=== PATIENT | male | born 1945 | race Caucasian/White ===

== ENCOUNTER 2022-05-10 08:48 | Day surgery (SDC) | payer MEDICARE, SELFPAY ==
--- NOTE | 2022-05-09 13:15 | HO.ANESPROP2 ---
Documented by User: Carole Maguire NP 05/09/22 13:15 HPI - Anesthesia Eval Consult details Narrative: 77yo M for Colonoscopy [facility] Past Medical History Medical History HTN (hypertension) Hypercholesteremia Hypothyroidism Urinary incontinence Surgical History Surgical History H/O prostatectomy Hx of cholecystectomy Social History Social History Patient Tobacco Use Status: Never used Tobacco Are you DNR?: No Advance Directives: No Advance Directives Information Provided: Yes Recently lost weight without trying: No Nutrition Risks: No Nutritional Risk Meds Allergies Allergy/AdvReac Type Severity Reaction Status Date / Time No Known Allergies Allergy Verified 05/09/22 13:05 Home Medications Medication Instructions Recorded Confirmed Last Taken Type Aspir-81 1 tab PO DAILY 05/09/22 05/09/22 05/02/22 History amlodipine 5 mg tablet 1 tab PO DAILY 05/09/22 05/09/22 05/08/22 History levothyroxine 50 mcg tablet 1 tab PO DAILY 05/09/22 05/09/22 05/09/22 History (Synthroid) rosuvastatin 40 mg tablet 1 tab PO DAILY 05/09/22 05/09/22 05/09/22 History Exam Exam Date and Time: May 09, 2022 1315 Assessment and Plan Assessment Anesthesia Assessment: Chart Reviewed Documented by User: Yoandy Valle MD 05/10/22 09:56 [facility] Past Medical History Medical History HTN (hypertension) Hypercholesteremia Hypothyroidism Urinary incontinence Family History Family history of problems with anesthesia: No Surgical History Surgical History H/O prostatectomy Hx of cholecystectomy History of Problems with Anesthesia: No Social History Social History Patient Tobacco Use Status: Never used Tobacco Are you DNR?: No Advance Directives: No Advance Directives Information Provided: Yes Recently lost weight without trying: No Nutrition Risks: No Nutritional Risk Meds Allergies Allergy/AdvReac Type Severity Reaction Status Date / Time No Known Allergies Allergy Verified 05/09/22 13:05 Home Medications Medication Instructions Recorded Confirmed Last Taken Type Aspir-81 1 tab PO DAILY 05/09/22 05/09/22 05/02/22 History amlodipine 5 mg tablet 1 tab PO DAILY 05/09/22 05/09/22 05/08/22 History levothyroxine 50 mcg tablet 1 tab PO DAILY 05/09/22 05/09/22 05/09/22 History (Synthroid) rosuvastatin 40 mg tablet 1 tab PO DAILY 05/09/22 05/09/22 05/09/22 History Exam Airway Mallampati Class: III TM Dist: >3cm Neck ROM: Full Partial: Upper Loose/Missing/Broken Teeth: Yes (many globally) Heart: [id number] Lungs: cta b/l Assessment and Plan Assessment Anesthesia Assessment: Anesthesia Plan Discussed Final Anesthetic Review Family History of Problems with Anesthesia: No History of Problems with Anesthesia: No NPO: Yes ASA Class: III Final Preanesthetic Review: No Changes in Pt Med Stat, Meds/Allgs Chart Reviewed, Consent Obtained/Reviewed and Anes Risks/Benef Reviewed Patient Risk: Intermediate Procedure Risk: Intermediate Assessment/Block/Sedation in SS: Assess/Block/Sedation-SS Anesthetic Plan Anesthetic Plan: MAC: and Agree w/ Assess. and Plan Disposition: Standard PACU
[2022-05-10 06:22] VITALS: BMI 34.4
[2022-05-10 09:16] VITALS: BP 163/90; PULSE 71; RESP 18; TEMP 36.6; O2SAT 97
[2022-05-10] MEDS: Lactated Ringers 1,000 ML 100 ML IVCONT (09:39)
--- NOTE | 2022-05-10 10:27 | MHC.SHP ---
Pre-Procedural Eval Section A Date of Service: 05/10/22 The patient is an INPATIENT: No Changes since office visit: No Cold of Flu in the past 2 weeks, No New Medical Problems, No Changes in Medication and No Patient answered all questions The History & Physical has been completed within 30 days and I have reviewed it.: Yes Section B Chief Complaint: screening, history of polyps Allergies: Allergies Allergy/AdvReac Type Severity Reaction Status Date / Time No Known Allergies Allergy Verified 05/09/22 13:05 Plan I have reviewed the history and physical and performed a pertinent physical examination on my patient. No changes have occurred unless specified.
[2022-05-10 11:15] VITALS: BP 104/61; PULSE 65; RESP 16; TEMP 36.2; O2SAT 96
--- NOTE | 2022-05-10 11:17 | PM.OP ---
Brief Operative Note Date of Service: 05/10/22 Pre-op diagnosis: screening Post-op diagnosis: same Surgeon: Benigno Madrid Anesthesia: MAC Was an Electrical Technician Instructor used for this Procedure?: No Estimated blood loss (mL): 5 Pathology: other Condition: stable Disposition: PACU
[2022-05-10 11:30] VITALS: BP 108/67; PULSE 67; RESP 16; O2SAT 94
[2022-05-10 11:45] VITALS: BP 118/69; PULSE 66; RESP 18; TEMP 36.5; O2SAT 95
--- NOTE | 2022-05-11 17:36 | OP_ITS ---
SURGEON: Benigno Madrid MD INDICATIONS: Colon cancer screening, prior history of adenomatous colon polyps. PREOPERATIVE DIAGNOSIS: POSTOPERATIVE DIAGNOSIS: PROCEDURE PERFORMED: Colonoscopy to the terminal ileum and biopsy with snare polypectomy. ESTIMATED BLOOD LOSS: COMPLICATIONS: ANESTHESIA: ASSISTANTS: SPECIMENS: MEDICATIONS: Monitored anesthesia care. PROCEDURE DESCRIPTION: Procedure was performed on 05/10/2022. History and physical performed. The risks and benefits of the procedure were explained to the patient. Informed consent was obtained. The patient was placed in left lateral decubitus position. A digital rectal exam was performed and was found to be normal. The Olympus Pediatric videocolonoscope was advanced in to the rectum and advanced to the cecum without difficulty. The cecum was identified by transillumination, palpation, and identification of the ileocecal valve. Examination was performed. The scope was removed. He tolerated the procedure well and was taken to recovery area in stable condition. FINDINGS: The terminal ileum was examined and appeared normal. The visualized colonic mucosa was within normal limits, without evidence of masses or ulcers. Two polyps were identified and removed, the first was located in the right colon measuring less than 5 mm. This was removed with biopsy forceps. The second was located in the rectum, measuring approximately 8-10 mm. This was removed with snare and recovered via suction. No other polyps were identified. There was moderate sigmoid diverticulosis. There was undigested food material in the sigmoid and rectum, which limited the sensitivity of the examination for detection of small polyps. The retained stool could not be removed completely as it clogged the scope. Retroflexed examination showed internal hemorrhoids. They were moderate in size. IMPRESSION: Colon polyps. RECOMMENDATIONS: Follow up on the biopsy results. MD CAROLINE Velasquez/JESSICA / [id number] BLAN[place]
== END 2022-05-10 11:57 | disposition home or self-care (01) ==
PROVIDERS: PCP Internal Medicine; Visit Provider Internal Medicine Gastroenterology
PROC: 0DJD8ZZ Inspection of Lower Intestinal Tract, Via Natural or Artificial Opening Endoscopic (ICD-10-PCS; CPT 45378; principal; 2022-05-10 10:20)
DX: Z12.11 Encounter for screening for malignant neoplasm of colon (principal); Z86.010 Personal history of colon polyps; D12.2 Benign neoplasm of ascending colon; D12.8 Benign neoplasm of rectum; K57.30 Diverticulosis of large intestine without perforation or abscess without bleeding; K64.8 Other hemorrhoids; I10 Essential (primary) hypertension; E78.00 Pure hypercholesterolemia, unspecified; E03.9 Hypothyroidism, unspecified; Z90.49 Acquired absence of other specified parts of digestive tract; Z79.82 Long term (current) use of aspirin; Z79.899 Other long term (current) drug therapy; Z90.79 Acquired absence of other genital organ(s)
CPT/HCPCS: 45385; 45380; 88305

== ENCOUNTER 2023-11-20 08:18 | Outpatient (REF) | payer MEDICARE, SELFPAY ==
[2023-11-20 15:30] LABS: Alanine Aminotransferase 49 U/L (0-40); Albumin Level 3.9 g/dL (3.5-5.0); Alkaline Phosphatase 77 U/L (39-117); Aspartate Amino Transferase 39 U/L (5-37); Bilirubin Direct 0.2 mg/dL (0.0-0.5); Bilirubin Total 0.6 mg/dL (0.0-1.0); Cholesterol 159 mg/dL (<200); HDL Cholesterol 33 mg/dL (>40); LDL Cholesterol Calculated 103 mg/dL (<100); Total Protein 6.9 g/dL (6.5-8.0); Triglycerides 116 mg/dL (<150)
== END 2023-11-20 08:19 | disposition home or self-care (01) ==
LOC: HO.CHCLDS 08:18
PROVIDERS: Visit Provider Internal Medicine
DX: E78.00 Pure hypercholesterolemia, unspecified (principal); E03.8 Other specified hypothyroidism
CPT/HCPCS: 36415; 80061; 80076; 84443

== ENCOUNTER 2023-11-27 12:49 | Outpatient (REF) | payer MEDICARE, SELFPAY ==
[2023-11-28 08:57] LABS: HBS Num1 0.46 mIU/mL (0-7.99); HBc Num1 0.13 S/CO (0.00-0.79); HBsAGNum1 0.27 S/CO (0.00-0.99); Hepatitis A Antibody IgM 0.23 Index (0-0.79); Hepatitis B Core Antibody Nonreactive (Nonreactive); Hepatitis B Surface Antigen Negative (Negative); ~Hepatitis A Antibody IgM Nonreactive (Nonreactive); ~Hepatitis B Surface Antibody NONREACTIVE (Nonreactive); ~Hepatitis C Antibody Nonreactive (Nonreactive)
== END 2023-11-27 12:50 | disposition home or self-care (01) ==
LOC: HO.CHCLDS 12:49
PROVIDERS: Visit Provider Internal Medicine
DX: R74.01 Elevation of levels of liver transaminase levels (principal)
CPT/HCPCS: 36415; 86704; 86706; 86709; 86803; 87340

== ENCOUNTER 2023-12-05 08:45 | Outpatient (REF) | payer MEDICARE, SELFPAY ==
--- NOTE | ~2023-12-05 | US_ITS ---
EXAMINATION: US ABDOMEN COMPLETE CLINICAL INFORMATION: Transaminitis. COMPARISON: None available. TECHNIQUE: Real-time imaging of the abdominal viscera. Technically difficult study secondary to bowel gas. FINDINGS: PANCREAS: The pancreas is not well seen due to bowel gas. ABDOMINAL AORTA: The proximal, mid, and distal segments are normal in caliber. INFERIOR VENA CAVA: Visualized portions are normal. LIVER: Normal. The liver is normal in size. The liver contour is normal. Parenchymal echogenicity is normal. No focal hepatic lesion. There is no intrahepatic biliary duct dilatation seen. GALLBLADDER: Surgically absent. COMMON BILE DUCT: Normal in caliber measuring 0.3 cm in diameter. Limited visualization. RIGHT KIDNEY: Normal. No hydronephrosis. No renal calculi or focal parenchymal lesions. The kidney measures 13.4 cm in maximum dimension. LEFT KIDNEY: No hydronephrosis or renal calculi. The kidney measures 13.6 cm in maximum dimension. 2.0 x 1.6 x 1.5 cm simple upper pole cyst is seen, no imaging follow-up is recommended.? Extrarenal pelvis. SPLEEN: Normal. The spleen measures 11.0 cm in maximum dimension. Splenule measures 1.8 x 2.0 x 2.4 cm. FREE FLUID: None. US/US abdomen complete IMPRESSION: 1. Prior cholecystectomy. 2. The pancreas is not well seen due to bowel gas.
== END 2023-12-05 08:46 | disposition home or self-care (01) ==
LOC: HO.HMGCX 08:45
PROVIDERS: PCP Internal Medicine; Visit Provider Internal Medicine
DX: R74.01 Elevation of levels of liver transaminase levels (principal)
CPT/HCPCS: 76700

== ENCOUNTER 2024-05-10 08:43 | Outpatient (REF) | payer MEDICARE, SELFPAY ==
[2024-05-10 11:51] LABS: Alanine Aminotransferase 37 U/L (0-40); Alkaline Phosphatase 76 U/L (39-117); Aspartate Amino Transferase 33 U/L (5-37); Bilirubin Direct 0.2 mg/dL (0.0-0.5); Bilirubin Total 0.6 mg/dL (0.0-1.0); Total Protein 7.1 g/dL (6.5-8.0)
== END 2024-05-10 08:44 | disposition home or self-care (01) ==
LOC: HO.HHCL 08:43
PROVIDERS: Visit Provider Internal Medicine
DX: R74.01 Elevation of levels of liver transaminase levels (principal)
CPT/HCPCS: 36415; 80076

== ENCOUNTER 2024-12-27 08:20 | Outpatient (REF) | payer MEDICARE, SELFPAY ==
--- OUTSIDE RECORDS SUMMARY | 2024-12-27 08:41 | XMS_ITS | Encounter Summary ---
Author Organization [facility] [employer] Address [address] [place] [address] Care Team Providers Care Internal Auditor Name Role Phone Cristian Gold MD Primary Care Provider [phone] Reason for Visit * Reason Onset Date Comments Med Refill 05/05/2023 Encounter Details Date Type Department Care Team ([facility] st Contact Info) Description 05/05/2023 Refill [facility] MED[facility]INE [address] [place] [address] Cristian Gold MD [address], [place] [phone] Social History Tobacco Use Types Packs/Day Years Used Date Smoking Tobacco: Never Assessed Housing Stability Answer Date Recorded What is your housing situation today? Not on franny e 05/05/[address] you li ve. Do you have problems with any of the following? None of the above 05/05/2023 Food Insecurity Answer Date Recorded Within the past 12 months, y ou worried that your food would run out before you got money to buy more: Never True 05/05/2023 Within the past 12 months,th e food you bought just didn't last and you didn't have enough money to get more: Never True Transportation Answer Date Recorded In the past 12 months, has l ack of transportation kept you from medical appts, meetings, work or from getting things needed for daily living? No 05/05/2023 Utilities Answer Date Recorded In the past 12 months, has t he electric, gas, oil or water company threatened to shut off services in your home? No 05/05/2023 Sex and Gender Information Value Date Recorded Sex Assigned at Male 05/13/2022 10:25 AM EDT Legal Sex Male 10:25 AM EDT Gender Identity Choose not to disclose 10:25 AM EDT Sexual Orientation Don't know 05/13/2022 10 :25 AM EDT documented as of this encounter Miscellaneous Notes * Telephone Encounter - America Riggins - 05/05/2023 4:49 PM EDT Tc from Pharmacy requesting med refill on levothyroxine (Synthroid, Levoxyl) 50 MCG tablet (90 supply due to vacations) documented in this encounter Plan of Treatment Upcoming Encounters Date Type Department Care Team (Late st Contact Info) Description 01/03/2025 1:00 PM EDT Office Visit [facility] [address] [place] [address] Cristian Godl MD [address] [place] [address] documented as of this encounter Visit Diagnoses Not on filedocumented in this encounter Care Teams Internal Auditor Relationship Specialty Start Date End Date Cristian Gold MD [address] [place] [address] PCP - General Internal Medicine 02/11/17 documented as of this encounter
[2024-12-27 14:42] LABS: TSH reflex Free T4 3.89 uIU/mL (0.32-4.0)
== END 2024-12-27 08:21 | disposition home or self-care (01) ==
LOC: HO.CHCLDS 08:20
PROVIDERS: Visit Provider Internal Medicine
DX: E03.8 Other specified hypothyroidism (principal)
CPT/HCPCS: 36415; 84443

== ENCOUNTER 2025-04-26 08:15 | Outpatient (REF) | payer MEDICARE, SELFPAY ==
[2025-04-26 13:58] LABS: MANUAL DIFF FLAG NO
[2025-04-26 14:02] LABS: Hematocrit 47.4 % (42.0-52.0); Hemoglobin 15.1 g/dl (14.0-18.0); Imm Gran Abs Auto 0.02 X10*3/uL (0.00-0.03); Imm Gran Pct Auto 0.3 % (0.0-0.4); Lymphocytes Absolute Auto 2.2 X10*3/uL (1.2-4.9); Mean Corpuscular HGB Conc 31.9 g/dl (31.0-36.0); Mean Corpuscular Hemoglobin 29.2 pg (27.0-33.0); Mean Corpuscular Volume 91.7 fL (80.0-98.0); NRBC Abs Auto 0.000 X10*3/uL (0.0-0.012); NRBC Pct Auto 0.0 /100WBC (0.0-0.2); Platelet Count 231 X10*3/uL (160-400); Red Blood Count 5.17 X10*6/uL (4.60-5.80); White Blood Count 7.9 X10*3/uL (4.8-10.8)
[2025-04-26 14:37] LABS: Alanine Aminotransferase 16 U/L (0-40); Albumin Level 4.2 g/dL (3.5-5.0); Alkaline Phosphatase 64 U/L (39-117); Anion Gap 11 (12-20); Aspartate Amino Transferase 31 U/L (5-37); Blood Urea Nitrogen 13 mg/dL (9-16); Calcium 9.1 mg/dL (8.4-10.2); Carbon Dioxide 24 mmol/L (22-29); Chloride 111 mmol/L (96-108); Cholesterol 177 mg/dL (<200); Estimated Glomerular Filt Rate > 60; HDL Cholesterol 29 mg/dL (>40); Potassium 4.3 mmol/L (3.3-5.1); Sodium 142 mmol/L (135-145); Total Protein 6.9 g/dL (6.5-8.0); Triglycerides 136 mg/dL (<150)
== END 2025-04-26 08:16 | disposition home or self-care (01) ==
LOC: HO.CHCLDS 08:15
PROVIDERS: Visit Provider Internal Medicine
DX: I10 Essential (primary) hypertension (principal); E78.00 Pure hypercholesterolemia, unspecified; E03.8 Other specified hypothyroidism
CPT/HCPCS: 36415; 80053; 80061; 84443; 85025